=== PATIENT | female | born 1960 | race Caucasian/White ===

== ENCOUNTER 2021-11-11 10:30 | Outpatient (RCR) | payer MEDICARE, BC, SELFPAY ==
[2021-10-24 16:15] LABS: Free T4 Free Thyroxine* 0.93 ng/dL (0.70-1.85)
[2021-10-26 17:00] LABS: Total T3 80 ng/dL (80-200)
--- NOTE | 2021-11-07 12:35 | ONC.NURNOTE ---
Authorization: User: Patrizia Chaidez Rabiaariannapaola Date: 04/20/21 15:44 Type: Eligibility Determination Note... Request received from [facility] for prior authorization of Keytruda [id number]. Patient carries Medicare as primary insurance. Per CMS.gov LCD F66531 no prior authorization is required for Keytruda. Services are based on medical necessity and follows Medicare guidelines.
[2021-11-09 11:20] LABS: Basophils Absolute Auto 0.04 K/uL (0.00-0.30); Basophils Percent Auto 0.5 % (0.0-3.0); Eosinophils Absolute Auto 0.29 K/uL (0.00-0.50); Eosinophils Percent Auto 3.6 % (0.0-7.0); Hematocrit 36.4 % (33.0-51.0); Hemoglobin* 11.9 gm/dL (12.0-16.0); Immature Granulocytes Abs Auto 0.02 K/uL (0.00-0.30); Lymphocytes Absolute Auto 1.91 K/uL (0.90-2.90); Lymphocytes Percent Auto 23.6 % (20-44); Mean Corpuscular HGB Conc 33 gm/dL (32-36); Mean Corpuscular Hemoglobin 31 pg (26-34); Mean Corpuscular Volume 93 fL (80-100); Neutrophils Absolute Auto 5.17 K/uL (1.7-7.0); Neutrophils Percent Auto 64.1 % (42.0-72.0); Platelet Count* 317 K/uL (140-440); RDW Coefficient of Variation % 14.2 % (11.5-15.5); White Blood Count* 8.08 K/uL (4.50-11.00)
[2021-11-09 11:24] LABS: Slide Review Reflex No
[2021-11-09 11:34] LABS: Albumin* 4.4 g/dL (3.3-5.0)
[2021-11-09 11:35] LABS: Chloride* 104 mmol/L (96-114); Potassium* 3.9 mmol/L (3.6-5.1); Sodium* 139 mmol/L (135-149)
[2021-11-09 11:37] LABS: Aspartate Amino Transferase* 27 U/L (12-35); Bilirubin Total* 0.2 mg/dL (0.1-1.5); Carbon Dioxide* 25 mmol/L (20-32); Creatinine* 1.1 mg/dL (0.5-1.5); Est. Creatinine Clearance* 44.99; Estimated Glomerular Filt Rate 58 ml/min; Total Protein* 7.6 g/dL (6.0-8.3)
[2021-11-09 11:38] LABS: Alanine Aminotransferase* 23 U/L (4-35); Alkaline Phosphatase* 61 U/L (40-150); Blood Urea Nitrogen* 31 mg/dL (7-30); Calcium* 9.7 mg/dL (8.4-10.6); Glucose* 107 mg/dL (60-115)
[2021-11-09 12:19] LABS: Free T4 Free Thyroxine* 0.79 ng/dL (0.70-1.85)
[2021-11-10 13:58] LABS: Total T3 74 ng/dL (80-200)
== END 2021-11-13 23:59 | disposition home or self-care (01) ==
LOC: CCIC 10:30
PROVIDERS: PCP Family Medicine; Visit Provider Clinical Nurse Specialist
DX: C43.9 Malignant melanoma of skin, unspecified (principal)
CPT/HCPCS: 36415; 80053; 82533; 84439; 84443; 84480; 85025; 99212; 99215

== ENCOUNTER 2022-04-27 20:51 | Outpatient (CLI) | payer MEDICARE, BC, SELFPAY | END 2022-04-27 20:52 | disposition home or self-care (01) | LOC: SLEEP 05-05 09:09 | PROVIDERS: PCP Family Medicine; Visit Provider Internal Medicine | DX: G47.33 Obstructive sleep apnea (adult) (pediatric) (principal) | CPT/HCPCS: 95811 ==

== ENCOUNTER 2022-05-25 12:30 | Outpatient (RCR) | payer MEDICARE, BC, SELFPAY ==
[2021-12-02 09:53] LABS: Basophils Absolute Auto 0.02 K/uL (0.00-0.30); Basophils Percent Auto 0.2 % (0.0-3.0); Eosinophils Percent Auto 2.3 % (0.0-7.0); Hematocrit 40.1 % (33.0-51.0); Hemoglobin* 12.9 gm/dL (12.0-16.0); Immature Granulocytes Abs Auto 0.02 K/uL (0.00-0.30); Lymphocytes Absolute Auto 2.21 K/uL (0.90-2.90); Lymphocytes Percent Auto 25.7 % (20-44); Mean Corpuscular HGB Conc 32 gm/dL (32-36); Mean Corpuscular Hemoglobin 29 pg (26-34); Mean Corpuscular Volume 91 fL (80-100); Neutrophils Absolute Auto 5.56 K/uL (1.7-7.0); Neutrophils Percent Auto 64.6 % (42.0-72.0); Platelet Count* 355 K/uL (140-440); RDW Coefficient of Variation % 13.5 % (11.5-15.5); Red Blood Count 4.39 m/uL (4.00-5.20); White Blood Count* 8.61 K/uL (4.50-11.00)
[2021-12-02 10:02] LABS: Slide Review Reflex No
[2021-12-02 10:05] LABS: Albumin* 4.6 g/dL (3.3-5.0); Chloride* 104 mmol/L (96-114); Sodium* 142 mmol/L (135-149)
[2021-12-02 10:06] LABS: Potassium* 3.8 mmol/L (3.6-5.1)
[2021-12-02 10:08] LABS: Alanine Aminotransferase* 19 U/L (4-35); Alkaline Phosphatase* 59 U/L (40-150); Aspartate Amino Transferase* 25 U/L (12-35); Bilirubin Total* 0.2 mg/dL (0.1-1.5); Blood Urea Nitrogen* 37 mg/dL (7-30); Carbon Dioxide* 23 mmol/L (20-32); Estimated Glomerular Filt Rate 64 ml/min; Glucose* 107 mg/dL (60-115); Total Protein* 8.2 g/dL (6.0-8.3)
[2021-12-02 10:09] LABS: Calcium* 9.9 mg/dL (8.4-10.6)
[2021-12-02] MEDS: PEMBROLIZUMAB 400 MG, TUBING PRIMARY 1 EACH, In-line 0.2 micron filter set 1 EACH in 0.... 232 MG IVPB (11:43)
[2021-12-03 14:05] LABS: Cortisol, Serum 14.2 ug/dL
[2022-01-17 11:55] LABS: White Blood Count* 8.93 K/uL (4.50-11.00)
[2022-01-17 11:56] LABS: Basophils Percent Auto 0.6 % (0.0-3.0); Eosinophils Percent Auto 2.7 % (0.0-7.0); Hematocrit 39.2 % (33.0-51.0); Hemoglobin* 12.5 gm/dL (12.0-16.0); Immature Granulocytes Pct Auto 0.4 %; Lymphocytes Percent Auto 24.5 % (20-44); Mean Corpuscular HGB Conc 32 gm/dL (32-36); Mean Corpuscular Hemoglobin 29 pg (26-34); Mean Corpuscular Volume 90 fL (80-100); Neutrophils Percent Auto 63.8 % (42.0-72.0); Platelet Count* 304 K/uL (140-440); RDW Coefficient of Variation % 14.5 % (11.5-15.5); Red Blood Count 4.34 m/uL (4.00-5.20)
[2022-01-17 11:57] LABS: Basophils Absolute Auto 0.05 K/uL (0.00-0.30); Eosinophils Absolute Auto 0.24 K/uL (0.00-0.50); Immature Granulocytes Abs Auto 0.04 K/uL (0.00-0.30); Lymphocytes Absolute Auto 2.19 K/uL (0.90-2.90); Monocytes Absolute Auto 0.71 K/UL (0.00-0.90); Slide Review Reflex No
[2022-01-17 12:27] LABS: Blood Urea Nitrogen* 22 mg/dL (7-30); Calcium* 9.6 mg/dL (8.4-10.6); Carbon Dioxide* 19 mmol/L (20-32); Chloride* 108 mmol/L (96-114); Estimated Glomerular Filt Rate 64 ml/min; Glucose* 110 mg/dL (60-115); Potassium* 4.4 mmol/L (3.6-5.1); Sodium* 138 mmol/L (135-149)
[2022-01-17 12:28] LABS: Alanine Aminotransferase* 18 U/L (4-35); Albumin* 4.4 g/dL (3.3-5.0); Alkaline Phosphatase* 59 U/L (40-150); Aspartate Amino Transferase* 46 U/L (12-35); Bilirubin Total* 0.3 mg/dL (0.1-1.5); Total Protein* 7.8 g/dL (6.0-8.3)
[2022-01-17] MEDS: PEMBROLIZUMAB 400 MG, TUBING PRIMARY 1 EACH, In-line 0.2 micron filter set 1 EACH in 0.... 232 MG IVPB (13:02)
[2022-01-17 20:12] LABS: Cortisol, Serum 10.5 ug/dL
[2022-02-27 11:48] LABS: Albumin* 4.4 g/dL (3.3-5.0); Chloride* 104 mmol/L (96-114); Potassium* 3.8 mmol/L (3.6-5.1); Sodium* 138 mmol/L (135-149)
[2022-02-27 11:50] LABS: Basophils Absolute Auto 0.04 K/uL (0.00-0.30); Basophils Percent Auto 0.5 % (0.0-3.0); Eosinophils Absolute Auto 0.17 K/uL (0.00-0.50); Eosinophils Percent Auto 2.2 % (0.0-7.0); Estimated Glomerular Filt Rate 64 ml/min; Hematocrit 39.5 % (33.0-51.0); Hemoglobin* 12.7 gm/dL (12.0-16.0); Immature Granulocytes Abs Auto 0.03 K/uL (0.00-0.30); Immature Granulocytes Pct Auto 0.4 %; Lymphocytes Absolute Auto 1.95 K/uL (0.90-2.90); Lymphocytes Percent Auto 25.3 % (20-44); Mean Corpuscular HGB Conc 32 gm/dL (32-36); Mean Corpuscular Hemoglobin 29 pg (26-34); Mean Corpuscular Volume 90 fL (80-100); Monocytes Percent Auto 7.9 % (0.0-11.0); Neutrophils Absolute Auto 4.92 K/uL (1.7-7.0); Neutrophils Percent Auto 63.7 % (42.0-72.0); Platelet Count* 315 K/uL (140-440); RDW Coefficient of Variation % 15.3 % (11.5-15.5); White Blood Count* 7.72 K/uL (4.50-11.00)
[2022-02-27 11:51] LABS: Alanine Aminotransferase* 20 U/L (4-35); Alkaline Phosphatase* 57 U/L (40-150); Aspartate Amino Transferase* 22 U/L (12-35); Bilirubin Total* 0.4 mg/dL (0.1-1.5); Blood Urea Nitrogen* 20 mg/dL (7-30); Carbon Dioxide* 23 mmol/L (20-32); Glucose* 110 mg/dL (60-115); Total Protein* 7.4 g/dL (6.0-8.3)
[2022-02-27 11:52] LABS: Calcium* 9.2 mg/dL (8.4-10.6)
[2022-02-27 12:00] LABS: Slide Review Reflex No
[2022-02-28 10:34] LABS: Cortisol, Serum 8.8 ug/dL
--- NOTE | 2022-02-28 12:26 | ONC.NURNOTE ---
Keytruda not available in pts dosage. Cindy will return tomorrow.
[2022-03-01 14:00] VITALS: BP 115/78; PULSE 57; RESP 16; TEMP 35.9; O2SAT 96
[2022-03-01] MEDS: PEMBROLIZUMAB 400 MG, TUBING PRIMARY 1 EACH, In-line 0.2 micron filter set 1 EACH in 0.... 232 MG IVPB (14:29)
--- NOTE | 2022-03-03 12:29 | ONC.NURNOTE ---
Dr. jimenez's note faxed to primary MD Dr. Dominguez per her request due to HR in 50's
[2022-04-12 11:44] LABS: Basophils Absolute Auto 0.03 K/uL (0.00-0.30); Basophils Percent Auto 0.4 % (0.0-3.0); Eosinophils Absolute Auto 0.24 K/uL (0.00-0.50); Eosinophils Percent Auto 2.8 % (0.0-7.0); Hematocrit 36.6 % (33.0-51.0); Hemoglobin* 11.8 gm/dL (12.0-16.0); Immature Granulocytes Abs Auto 0.04 K/uL (0.00-0.30); Immature Granulocytes Pct Auto 0.5 %; Lymphocytes Absolute Auto 1.88 K/uL (0.90-2.90); Lymphocytes Percent Auto 22.3 % (20-44); Mean Corpuscular HGB Conc 32 gm/dL (32-36); Mean Corpuscular Hemoglobin 30 pg (26-34); Mean Corpuscular Volume 93 fL (80-100); Monocytes Percent Auto 8.1 % (0.0-11.0); Neutrophils Absolute Auto 5.57 K/uL (1.7-7.0); Neutrophils Percent Auto 65.9 % (42.0-72.0); Platelet Count* 333 K/uL (140-440); RDW Coefficient of Variation % 15.1 % (11.5-15.5); Red Blood Count 3.95 m/uL (4.00-5.20); White Blood Count* 8.44 K/uL (4.50-11.00)
[2022-04-12 11:48] LABS: Slide Review Reflex No
[2022-04-12 11:51] VITALS: BP 118/63; PULSE 49; RESP 16; TEMP 36.5; O2SAT 95
[2022-04-12 11:57] LABS: Albumin* 4.3 g/dL (3.3-5.0); Chloride* 108 mmol/L (96-114)
[2022-04-12 11:58] LABS: Potassium* 4.3 mmol/L (3.6-5.1); Sodium* 139 mmol/L (135-149)
[2022-04-12 12:00] LABS: Aspartate Amino Transferase* 23 U/L (12-35); Bilirubin Total* 0.4 mg/dL (0.1-1.5); Carbon Dioxide* 22 mmol/L (20-32); Estimated Glomerular Filt Rate 64 ml/min
[2022-04-12 12:01] LABS: Alanine Aminotransferase* 24 U/L (4-35); Alkaline Phosphatase* 58 U/L (40-150); Blood Urea Nitrogen* 21 mg/dL (7-30); Calcium* 9.7 mg/dL (8.4-10.6); Glucose* 104 mg/dL (60-115); Total Protein* 7.3 g/dL (6.0-8.3)
[2022-04-12] MEDS: PEMBROLIZUMAB 400 MG, TUBING PRIMARY 1 EACH, In-line 0.2 micron filter set 1 EACH in 0.... 232 MG IVPB (13:09)
--- NOTE | 2022-04-12 14:58 | ONC.NURNOTE ---
Pt here for q6wk Keytruda; tolerating well. Pt is in work-up for bariatric surgery; in April she will have a sleep study/sleep consult, psych consult and historic preservationist consult. Scheduling of bariatric surgery at [facility] is pending results of these appts. Pt sched to f/u with Dr. Agrawal with next Keytruda infusion.
[2022-04-12 16:18] LABS: Free T4 Free Thyroxine* 1.27 ng/dL (0.70-1.85)
[2022-04-14 14:57] LABS: Free T3 2.6 pg/mL (2.5-4.3)
--- NOTE | 2022-05-22 15:11 | URNOTE ---
Request received for authorization forGerson ([id number]). Prior authorization is not required as services are based on medical necessity and follow Medicare guidelines.
[2022-05-25 12:50] LABS: Basophils Absolute Auto 0.04 K/uL (0.00-0.30); Basophils Percent Auto 0.5 % (0.0-3.0); Eosinophils Absolute Auto 0.26 K/uL (0.00-0.50); Eosinophils Percent Auto 3.1 % (0.0-7.0); Hematocrit 39.2 % (33.0-51.0); Hemoglobin* 12.7 gm/dL (12.0-16.0); Immature Granulocytes Abs Auto 0.01 K/uL (0.00-0.30); Immature Granulocytes Pct Auto 0.1 %; Lymphocytes Absolute Auto 1.94 K/uL (0.90-2.90); Lymphocytes Percent Auto 23.4 % (20-44); Mean Corpuscular HGB Conc 32 gm/dL (32-36); Mean Corpuscular Hemoglobin 30 pg (26-34); Mean Corpuscular Volume 92 fL (80-100); Monocytes Percent Auto 6.9 % (0.0-11.0); Neutrophils Absolute Auto 5.46 K/uL (1.7-7.0); Platelet Count* 327 K/uL (140-440); RDW Coefficient of Variation % 13.5 % (11.5-15.5); Red Blood Count 4.26 m/uL (4.00-5.20); White Blood Count* 8.28 K/uL (4.50-11.00)
[2022-05-25 12:55] LABS: Slide Review Reflex No
[2022-05-25 13:09] LABS: Albumin* 4.5 g/dL (3.3-5.0); Chloride* 106 mmol/L (96-114)
[2022-05-25 13:10] LABS: Sodium* 140 mmol/L (135-149)
[2022-05-25 13:12] LABS: Aspartate Amino Transferase* 22 U/L (12-35); Bilirubin Total* 0.5 mg/dL (0.1-1.5); Carbon Dioxide* 23 mmol/L (20-32); Creatinine* 1.1 mg/dL (0.5-1.5); Estimated Glomerular Filt Rate 58 ml/min; Total Protein* 7.8 g/dL (6.0-8.3)
[2022-05-25 13:13] LABS: Alanine Aminotransferase* 21 U/L (4-35); Alkaline Phosphatase* 56 U/L (40-150); Blood Urea Nitrogen* 22 mg/dL (7-30); Calcium* 10.2 mg/dL (8.4-10.6); Glucose* 99 mg/dL (60-115)
[2022-05-25 13:41] VITALS: BP 133/72; PULSE 52; RESP 18; TEMP 35.8; O2SAT 96
[2022-05-25] MEDS: PEMBROLIZUMAB 400 MG, TUBING PRIMARY 1 EACH, In-line 0.2 micron filter set 1 EACH in 0.... 232 MG IVPB (14:13)
[2022-05-27 02:45] LABS: Total T3 84 ng/dL (80-200)
== END 2022-05-31 23:59 | disposition home or self-care (01) ==
LOC: CCIC 12:30
PROVIDERS: Clinical Nurse Specialist; PCP Family Medicine; Referring Provider Family Medicine; Visit Provider Internal Medicine Hematology & Oncology
DX: C43.9 Malignant melanoma of skin, unspecified (principal); E03.9 Hypothyroidism, unspecified
CPT/HCPCS: 36415; 80053; 82533; 84436; 84439; 84443; 84480; 84481; 85025; 96413; 99212; 99214; 99215; J9271

== ENCOUNTER 2022-06-01 14:52 | Outpatient (CLI) | payer MEDICARE, BC, SELFPAY ==
--- NOTE | 2022-06-01 15:30 | CRLHL7_ITS ---
For Patients: As a result of the 21st Century Cures Act, medical imaging exams and procedure reports are released immediately into your electronic medical record. You may view this report before your referring provider. If you have questions, please contact your health care provider. INDICATION: 61 year-old female. Malignant melanoma of the left shoulder. Immunotherapy (Keytruda). Followup. Restaging. TECHNIQUE: 11.84 mCi 18 FDG (18 bjoqiv-qk-eob-glucose) injected intravenously. Imaging performed from the skull vertex through the feet [address] performed for anatomic correlation and attenuation correction. Pre scan glucose: 102 mg/dL. COMPARISON: PET/CT scan November 01, 2020. FINDINGS: Physiologic activity is identified in the brain, salivary glands, tongue, paralaryngeal soft tissues, myocardium, GI, and tract. The intracranial structures are within normal limits. The soft tissues of the head, face, and neck are within normal limits. A previously suggested nodule in the right thyroid gland is less evident but not absent with an SUV max of 3.3 previously 4.6. Within the chest there are no metabolically active nodules or masses. No abnormal activity within either breast. No evidence for metabolically active lymphadenopathy within the chest including the axillary or supraclavicular spaces. There is focal asymmetric increased activity within the subcutaneous fat along the proximal lateral RIGHT shoulder entirely nonspecific. Please correlate with any pertinent clinical history such as a biopsy or trauma to this region. The SUV max is 3.5. The abdomen and pelvis are within normal limits. High-level activity associated with small and large bowel loops can be seen in patients on metformin. No evidence for metabolically active abdominal pelvic or inguinal lymphadenopathy. The soft tissues of the lower extremities from the hips to the feet are within normal limits. The included skeleton demonstrates degenerative-type activity about the shoulders, knees, and right ankle. CT Findings: Minor curvilinear fibrosis or atelectasis anteromedial right middle lobe and lingular left upper lobe. No thoracic lymphadenopathy. Degenerative arthritis of the shoulders and sternoclavicular joints. No hydronephrosis or splenomegaly. Vascular calcification in a normal caliber abdominal aorta. Absent uterus. Degenerative arthritis of the hips, symphysis pubis, and knees. IMPRESSION: 1. No PET/CT scan evidence for recurrent or metastatic disease. 2. Nonspecific activity within subcutaneous fat lateral to the RIGHT shoulder, SUV max 3.5. This could be related to prior trauma or post interventional in nature. There is NO abnormal activity about the LEFT shoulder. 3. Small nodule right thyroid gland less evident than before and less metabolically active, very likely benign. Dictated by Jamie Spivey MD @ 06/07/2022 1:21:57 PM (Electronically Signed)
== END 2022-06-01 14:53 | disposition home or self-care (01) ==
LOC: RAD 14:54
PROVIDERS: PCP Family Medicine; Visit Provider Internal Medicine Hematology & Oncology
DX: C43.62 Malignant melanoma of left upper limb, including shoulder (principal); C43.9 Malignant melanoma of skin, unspecified; E04.1 Nontoxic single thyroid nodule
CPT/HCPCS: 78816; A9552

== ENCOUNTER 2022-10-02 10:00 | Outpatient (RCR) | payer MEDICARE, BC, SELFPAY ==
--- NOTE | 2022-06-08 13:31 | ONC.NURNOTE ---
Left message for patient that bid writer contacted [facility] and they stated she had cancelled appointment for last November and left her a message to reschedule but she has not done that. Primary Care Nurse Practitioner spoke with Jayson and they plan to reach out to patient and get her in for full body screen.
[2022-07-10 10:12] LABS: Basophils Absolute Auto 0.03 K/uL (0.00-0.30); Basophils Percent Auto 0.4 % (0.0-3.0); Eosinophils Absolute Auto 0.24 K/uL (0.00-0.50); Eosinophils Percent Auto 3.1 % (0.0-7.0); Hematocrit 40.2 % (33.0-51.0); Hemoglobin* 12.9 gm/dL (12.0-16.0); Immature Granulocytes Abs Auto 0.03 K/uL (0.00-0.30); Immature Granulocytes Pct Auto 0.4 %; Lymphocytes Absolute Auto 1.94 K/uL (0.90-2.90); Lymphocytes Percent Auto 24.9 % (20-44); Mean Corpuscular HGB Conc 32 gm/dL (32-36); Mean Corpuscular Hemoglobin 29 pg (26-34); Mean Corpuscular Volume 91 fL (80-100); Monocytes Percent Auto 6.9 % (0.0-11.0); Neutrophils Absolute Auto 5.02 K/uL (1.7-7.0); Neutrophils Percent Auto 64.3 % (42.0-72.0); Platelet Count* 322 K/uL (140-440); RDW Coefficient of Variation % 13.5 % (11.5-15.5); Red Blood Count 4.43 m/uL (4.00-5.20)
[2022-07-10 10:13] LABS: Slide Review Reflex No
[2022-07-10 10:36] LABS: Albumin* 4.5 g/dL (3.3-5.0); Chloride* 105 mmol/L (96-114); Sodium* 139 mmol/L (135-149)
[2022-07-10 10:37] LABS: Potassium* 4.3 mmol/L (3.6-5.1)
[2022-07-10 10:39] LABS: Alanine Aminotransferase* 21 U/L (4-35); Alkaline Phosphatase* 54 U/L (40-150); Aspartate Amino Transferase* 23 U/L (12-35); Bilirubin Total* 0.5 mg/dL (0.1-1.5); Blood Urea Nitrogen* 18 mg/dL (7-30); Carbon Dioxide* 25 mmol/L (20-32); Estimated Glomerular Filt Rate 64 ml/min; Glucose* 122 mg/dL (60-115); Total Protein* 7.8 g/dL (6.0-8.3)
[2022-07-10 10:40] LABS: Calcium* 10.1 mg/dL (8.4-10.6)
[2022-07-10] MEDS: PEMBROLIZUMAB 400 MG, TUBING PRIMARY 1 EACH, In-line 0.2 micron filter set 1 EACH in 0.... 232 MG IVPB (12:46)
--- NOTE | 2022-07-11 10:31 | ONC.NURNOTE ---
Labs from 07/10/22 faxed to [facility] to Dr. Dominguez per request of Ms. Louis.
[2022-07-11 21:51] LABS: Cortisol, Serum 13.6 ug/dL
[2022-08-21 10:28] LABS: Basophils Absolute Auto 0.02 K/uL (0.00-0.30); Basophils Percent Auto 0.3 % (0.0-3.0); Eosinophils Absolute Auto 0.23 K/uL (0.00-0.50); Eosinophils Percent Auto 3.6 % (0.0-7.0); Hematocrit 38.7 % (33.0-51.0); Hemoglobin* 12.5 gm/dL (12.0-16.0); Immature Granulocytes Abs Auto 0.01 K/uL (0.00-0.30); Immature Granulocytes Pct Auto 0.2 %; Lymphocytes Absolute Auto 1.68 K/uL (0.90-2.90); Lymphocytes Percent Auto 26.2 % (20-44); Mean Corpuscular HGB Conc 32 gm/dL (32-36); Mean Corpuscular Hemoglobin 29 pg (26-34); Mean Corpuscular Volume 90 fL (80-100); Neutrophils Absolute Auto 4.03 K/uL (1.7-7.0); Neutrophils Percent Auto 62.7 % (42.0-72.0); Platelet Count* 303 K/uL (140-440); RDW Coefficient of Variation % 14.4 % (11.5-15.5); Red Blood Count 4.28 m/uL (4.00-5.20); White Blood Count* 6.42 K/uL (4.50-11.00)
[2022-08-21 10:32] LABS: Slide Review Reflex No
[2022-08-21 10:43] LABS: Albumin* 4.5 g/dL (3.3-5.0); Chloride* 104 mmol/L (96-114); Potassium* 4.1 mmol/L (3.6-5.1); Sodium* 139 mmol/L (135-149)
[2022-08-21 10:46] LABS: Alanine Aminotransferase* 20 U/L (4-35); Alkaline Phosphatase* 58 U/L (40-150); Aspartate Amino Transferase* 21 U/L (12-35); Bilirubin Total* 0.3 mg/dL (0.1-1.5); Blood Urea Nitrogen* 25 mg/dL (7-30); Carbon Dioxide* 24 mmol/L (20-32); Creatinine* 0.9 mg/dL (0.5-1.5); Estimated Glomerular Filt Rate 73 ml/min; Glucose* 118 mg/dL (60-115); Total Protein* 7.7 g/dL (6.0-8.3)
[2022-08-21 10:47] LABS: Calcium* 9.7 mg/dL (8.4-10.6)
[2022-08-21 11:15] VITALS: BP 137/77; PULSE 44; RESP 16; TEMP 35.9; O2SAT 96
[2022-08-21] MEDS: PEMBROLIZUMAB 400 MG, TUBING PRIMARY 1 EACH, In-line 0.2 micron filter set 1 EACH in 0.... 232 MG IVPB (12:29)
[2022-10-02 10:21] LABS: Basophils Absolute Auto 0.03 K/uL (0.00-0.30); Basophils Percent Auto 0.4 % (0.0-3.0); Eosinophils Percent Auto 2.4 % (0.0-7.0); Hematocrit 40.2 % (33.0-51.0); Immature Granulocytes Abs Auto 0.02 K/uL (0.00-0.30); Immature Granulocytes Pct Auto 0.2 %; Lymphocytes Absolute Auto 1.99 K/uL (0.90-2.90); Mean Corpuscular HGB Conc 32 gm/dL (32-36); Mean Corpuscular Hemoglobin 29 pg (26-34); Mean Corpuscular Volume 91 fL (80-100); Monocytes Percent Auto 7.3 % (0.0-11.0); Neutrophils Absolute Auto 5.45 K/uL (1.7-7.0); Neutrophils Percent Auto 65.7 % (42.0-72.0); Platelet Count* 352 K/uL (140-440); RDW Coefficient of Variation % 14.4 % (11.5-15.5); Red Blood Count 4.44 m/uL (4.00-5.20); Slide Review Reflex No
[2022-10-02 10:33] LABS: Albumin* 4.5 g/dL (3.3-5.0); Chloride* 105 mmol/L (96-114); Potassium* 3.6 mmol/L (3.6-5.1); Sodium* 138 mmol/L (135-149)
[2022-10-02 10:35] LABS: Creatinine* 0.9 mg/dL (0.5-1.5); Estimated Glomerular Filt Rate 73 ml/min
[2022-10-02 10:36] LABS: Alanine Aminotransferase* 26 U/L (4-35); Alkaline Phosphatase* 58 U/L (40-150); Aspartate Amino Transferase* 26 U/L (12-35); Bilirubin Total* 0.2 mg/dL (0.1-1.5); Blood Urea Nitrogen* 29 mg/dL (7-30); Carbon Dioxide* 24 mmol/L (20-32); Glucose* 113 mg/dL (60-115)
[2022-10-02 10:37] LABS: Calcium* 10.4 mg/dL (8.4-10.6)
[2022-10-02] MEDS: PEMBROLIZUMAB 400 MG, TUBING PRIMARY 1 EACH, In-line 0.2 micron filter set 1 EACH in 0.... 232 MG IVPB (12:40)
[2022-10-04 04:11] LABS: Cortisol, Serum 12.6 ug/dL
== END 2022-12-05 23:59 | disposition home or self-care (01) ==
LOC: CCIC 10:00
PROVIDERS: Internal Medicine Hematology & Oncology; PCP Family Medicine; Referring Provider Family Medicine; Visit Provider Clinical Nurse Specialist
DX: C43.9 Malignant melanoma of skin, unspecified (principal); E03.9 Hypothyroidism, unspecified; R60.9 Edema, unspecified; R00.1 Bradycardia, unspecified; E11.9 Type 2 diabetes mellitus without complications; I10 Essential (primary) hypertension; E66.01 Morbid (severe) obesity due to excess calories
CPT/HCPCS: 36415; 80053; 82533; 84443; 85025; 96413; 99212; 99213; 99214; 99215; 99442; J9271

== ENCOUNTER 2023-06-05 13:00 | Outpatient (RCR) | payer MEDICARE, BC, SELFPAY ==
[2022-12-28 13:07] LABS: Basophils Absolute Auto 0.03 K/uL (0.00-0.30); Basophils Percent Auto 0.4 % (0.0-3.0); Eosinophils Absolute Auto 0.24 K/uL (0.00-0.50); Eosinophils Percent Auto 3.3 % (0.0-7.0); Hematocrit 41.8 % (33.0-51.0); Hemoglobin* 13.7 gm/dL (12.0-16.0); Immature Granulocytes Abs Auto 0.01 K/uL (0.00-0.30); Immature Granulocytes Pct Auto 0.1 %; Lymphocytes Absolute Auto 2.35 K/uL (0.90-2.90); Lymphocytes Percent Auto 32.3 % (20-44); Mean Corpuscular HGB Conc 33 gm/dL (32-36); Mean Corpuscular Hemoglobin 29 pg (26-34); Mean Corpuscular Volume 89 fL (80-100); Monocytes Percent Auto 7.6 % (0.0-11.0); Neutrophils Absolute Auto 4.09 K/uL (1.7-7.0); Neutrophils Percent Auto 56.3 % (42.0-72.0); Platelet Count* 293 K/uL (140-440); RDW Coefficient of Variation % 15.7 % (11.5-15.5); White Blood Count* 7.27 K/uL (4.50-11.00)
[2022-12-28 13:22] LABS: Albumin* 4.3 g/dL (3.3-5.0); Slide Review Reflex No
[2022-12-28 13:23] LABS: Chloride* 102 mmol/L (96-114); Potassium* 3.1 mmol/L (3.6-5.1); Sodium* 133 mmol/L (135-149)
[2022-12-28 13:25] LABS: Alkaline Phosphatase* 86 U/L (40-150); Anion Gap 11 mEq/L (7-15); Aspartate Amino Transferase* 38 U/L (12-35); Bilirubin Total* 0.7 mg/dL (0.1-1.5); Blood Urea Nitrogen* 21 mg/dL (7-30); Carbon Dioxide* 20 mmol/L (20-32); Creatinine* 0.9 mg/dL (0.5-1.5); Estimated Glomerular Filt Rate 73 ml/min; Total Protein* 7.6 g/dL (6.0-8.3)
[2022-12-28 13:26] LABS: Alanine Aminotransferase* 32 U/L (4-35); Calcium* 10.3 mg/dL (8.4-10.6); Glucose* 104 mg/dL (60-115); Lactate Dehydrogenase* 227 U/L (120-246)
--- NOTE | 2023-03-27 14:12 | ONC.NURNOTE ---
Lab orders sent to [facility] per pt request.
--- NOTE | 2023-04-26 15:19 | ONC.NURNOTE ---
Pt scheduled for next PET CT at [facility] on May 17 at 3:30pm. Message left for pt to confirm that day works for her and to let her know we will also need a blood draw that day as well.
[2023-05-17 15:04] LABS: Basophils Absolute Auto 0.03 K/uL (0.00-0.30); Basophils Percent Auto 0.4 % (0.0-3.0); Eosinophils Absolute Auto 0.21 K/uL (0.00-0.50); Eosinophils Percent Auto 2.9 % (0.0-7.0); Hematocrit 36.2 % (33.0-51.0); Hemoglobin* 11.4 gm/dL (12.0-16.0); Immature Granulocytes Abs Auto 0.05 K/uL (0.00-0.30); Immature Granulocytes Pct Auto 0.7 %; Lymphocytes Absolute Auto 2.59 K/uL (0.90-2.90); Lymphocytes Percent Auto 35.7 % (20-44); Mean Corpuscular HGB Conc 32 gm/dL (32-36); Mean Corpuscular Hemoglobin 32 pg (26-34); Mean Corpuscular Volume 101 fL (80-100); Monocytes Percent Auto 5.9 % (0.0-11.0); Neutrophils Absolute Auto 3.95 K/uL (1.7-7.0); Neutrophils Percent Auto 54.4 % (42.0-72.0); Platelet Count* 248 K/uL (140-440); RDW Coefficient of Variation % 13.9 % (11.5-15.5); Red Blood Count 3.59 m/uL (4.00-5.20); White Blood Count* 7.26 K/uL (4.50-11.00)
[2023-05-17 15:11] LABS: Slide Review Reflex No
[2023-05-17 15:16] LABS: Albumin* 4.8 g/dL (3.3-5.0); Chloride* 109 mmol/L (96-114); Potassium* 3.9 mmol/L (3.6-5.1); Sodium* 140 mmol/L (135-149)
[2023-05-17 15:18] LABS: Creatinine* 0.8 mg/dL (0.5-1.5); Estimated Glomerular Filt Rate 84 ml/min
[2023-05-17 15:19] LABS: Alanine Aminotransferase* 31 U/L (4-35); Alkaline Phosphatase* 89 U/L (40-150); Anion Gap 11 mEq/L (7-15); Aspartate Amino Transferase* 48 U/L (12-35); Bilirubin Total* 0.9 mg/dL (0.1-1.5); Blood Urea Nitrogen* 25 mg/dL (7-30); Calcium* 9.7 mg/dL (8.4-10.6); Carbon Dioxide* 20 mmol/L (20-32); Glucose* 86 mg/dL (60-115); Lactate Dehydrogenase* 299 U/L (120-246); Total Protein* 7.9 g/dL (6.0-8.3)
== END 2023-06-26 23:59 | disposition home or self-care (01) ==
LOC: CCIC 13:00
PROVIDERS: PCP Family Medicine; Referring Provider Family Medicine; Visit Provider Internal Medicine Hematology & Oncology
DX: C43.62 Malignant melanoma of left upper limb, including shoulder (principal); E03.9 Hypothyroidism, unspecified; Z87.891 Personal history of nicotine dependence
CPT/HCPCS: 36415; 78816; 80053; 83615; 84443; 85025; 99213; 99214; G0463; A9552

== ENCOUNTER 2024-02-04 14:00 | Outpatient (RCR) | payer MEDICARE, BC, SELFPAY ==
[2023-11-29 15:51] LABS: Albumin* 4.5 g/dL (3.3-5.0)
[2023-11-29 15:52] LABS: Chloride* 103 mmol/L (96-114); Potassium* 3.2 mmol/L (3.6-5.1); Sodium* 134 mmol/L (135-149)
[2023-11-29 15:54] LABS: Anion Gap 7 mEq/L (7-15); Aspartate Amino Transferase* 32 U/L (12-35); Bilirubin Total* 0.7 mg/dL (0.1-1.5); Carbon Dioxide* 24 mmol/L (20-32); Creatinine* 0.7 mg/dL (0.5-1.5); Estimated Glomerular Filt Rate 98 ml/min; Total Protein* 7.4 g/dL (6.0-8.3)
[2023-11-29 15:55] LABS: Alanine Aminotransferase* 29 U/L (4-35); Alkaline Phosphatase* 89 U/L (40-150); Basophils Absolute Auto 0.02 K/uL (0.00-0.30); Basophils Percent Auto 0.3 % (0.0-3.0); Blood Urea Nitrogen* 29 mg/dL (7-30); Calcium* 9.8 mg/dL (8.4-10.6); Eosinophils Absolute Auto 0.16 K/uL (0.00-0.50); Eosinophils Percent Auto 2.1 % (0.0-7.0); Glucose* 87 mg/dL (60-115); Hematocrit 36.6 % (33.0-51.0); Hemoglobin* 11.6 gm/dL (12.0-16.0); Immature Granulocytes Abs Auto 0.02 K/uL (0.00-0.30); Immature Granulocytes Pct Auto 0.3 %; Lactate Dehydrogenase* 259 U/L (120-246); Lymphocytes Absolute Auto 2.39 K/uL (0.90-2.90); Lymphocytes Percent Auto 30.8 % (20-44); Mean Corpuscular HGB Conc 32 gm/dL (32-36); Mean Corpuscular Hemoglobin 30 pg (26-34); Mean Corpuscular Volume 94 fL (80-100); Monocytes Percent Auto 6.4 % (0.0-11.0); Neutrophils Absolute Auto 4.68 K/uL (1.7-7.0); Neutrophils Percent Auto 60.1 % (42.0-72.0); Platelet Count* 197 K/uL (140-440); RDW Coefficient of Variation % 14.6 % (11.5-15.5); Red Blood Count 3.88 m/uL (4.00-5.20); White Blood Count* 7.77 K/uL (4.50-11.00)
[2023-11-29 16:01] LABS: Slide Review Reflex No
[2023-12-11 15:05] LABS: Iron* 60 ug/dL (37-170)
[2023-12-11 15:14] LABS: Percent Iron Saturation 18 % (20-50); Total Iron Binding Capacity 332 ug/dL (265-497)
[2023-12-11 15:41] LABS: Ferritin* 28.5 ng/mL (11.1-264.0)
[2023-12-11 15:55] LABS: Vitamin B12* 967 pg/mL (243-894)
[2023-12-12 18:21] LABS: Copper, Serum/Plasma 77.3 ug/dL (80.0-155.0)
[2023-12-13 15:23] LABS: Folate, Serum >22.3 ng/mL (>=5.9)
--- NOTE | 2023-12-20 10:28 | ONC.NURNOTE ---
Addendum entered by Gabriela Yo RN 12/20/23 16:10: Patient called back verifying she received message from Dr. Adrian this am and will start copper supplement when she gets back from out of town on 12/30 Original Note: New RX- Copper Gluconate 2 mg sent to [facility] per Dr Adrian [facility] and other local retail pharmacies do not carry copper it was suggested to look at vitamin stores or [facility] available on [facility] for 11.99 this information was called to Cindy instructions given to only take 2mg QOD for 14 doses (1 month) teach back used
== END 2024-05-27 23:59 | disposition home or self-care (01) ==
LOC: CCIC 14:00
PROVIDERS: PCP Family Medicine; Referring Provider Family Medicine; Visit Provider Internal Medicine Hematology & Oncology
DX: C43.62 Malignant melanoma of left upper limb, including shoulder (principal); E03.9 Hypothyroidism, unspecified; Z98.84 Bariatric surgery status; D75.89 Other specified diseases of blood and blood-forming organs
CPT/HCPCS: 36415; 78816; 80053; 82525; 82607; 82728; 82746; 83540; 83550; 83615; 84443; 85025; 99214; G0463; A9552

== ENCOUNTER 2024-07-10 13:26 | Outpatient (CLI) | payer MEDICARE, BC, SELFPAY ==
--- NOTE | 2024-07-10 14:30 | CRLHL7_ITS ---
For Patients: As a result of the 21st Century Cures Act, medical imaging exams and procedure reports are released immediately into your electronic medical record. You may view this report before your referring provider. If you have questions, please contact your health care provider. EXAM: PET-CT Vertex to feet CLINICAL INFORMATION: 63-yo Female with a history of excised malignant melanoma of the left posterior shoulder/upper arm with prior wide local excision and sentinel lymph node dissection (2020). Completed signal agent immunotherapy (10/02/2022). Prior right thyroid lobe nodule biopsy benign per clinic notes (10/2020). Patient is referred for further characterization/surveillance. TECHNIQUE: Radiopharmaceutical: 12.7 mCi of 18F-FDG Intravenous injection site: Rac Uptake time: 55 minutes Blood glucose level at the time of injection: (n/a) mg/dL Field of view: Skull vertex to feet CT protocol: The low-dose, free-breathing, noncontrast CT performed as part of this study is designed for the purposes of attenuation correction and lesion localization, and it is neither sufficient, nor it should be substituted for diagnostic purposes. COMPARISON: PET-CT 11/29/2023, 05/17/2023 and 12/28/2022 FINDINGS: Physiologic background liver standardized uptake value (SUV mean and SUV max) reported for comparison between PET studies: 2.5 and 3.2. Visualized head and neck: No abnormal uptake or significant mass effect in the brain. No enlarged or hypermetabolic cervical chain lymph nodes. Carotid vascular calcifications. -low-density right thyroid lobe nodule with very mild uptake, 1.2 cm, SUV max 2.5. Previously 2.5. Not significantly changed Lungs: Respiratory motion. No abnormal pulmonary uptake. Strand-like areas of atelectasis or scarring in the medial right middle lobe, inferior lingula and dependent lung bases. Thoracic lymph nodes: No enlarged or hypermetabolic mediastinal, hilar or axillary lymph nodes. Other chest findings: Small pericardial fluid slightly increased from prior. Trace pleural fluid. Scattered mild coronary vascular calcifications. Hepatobiliary: No measurable tracer avid liver lesions. Distended gallbladder with small layering debris. Spleen: No abnormal uptake. No splenomegaly. Pancreas: No abnormal uptake. No adjacent inflammatory change. Adrenal glands: No abnormal uptake. Kidneys and bladder: No abnormal uptake or obstruction. Similar low-density lower pole right renal lesion without uptake. Too small to characterize, possibly a small cyst. Partially distended bladder. Bowel and peritoneum: Prior gastric bypass surgery. No obstruction. No abnormal uptake in the gastric remnant or small bowel. Patent small bowel anastomoses. Scattered areas of uptake within the colon including the ascending colon/cecum, hepatic and splenic flexure, descending and sigmoid colon demonstrate no gross abnormality on noncontrast CT. Nonspecific, possibly reactive/inflammatory related to Metformin use. Redundant sigmoid colon. Pelvic organs: Prior hysterectomy with bilateral salpingo-oophorectomy. No abnormal uptake. Abdominopelvic lymph nodes: No enlarged or hypermetabolic abdominal, mesenteric, retroperitoneal or pelvic/inguinal lymph nodes. Musculoskeletal, soft tissues, skin: No aggressive, lytic or expansile osseous lesions with uptake. Degenerative type uptake within the shoulders, spine, left elbow, right hand, bilateral hips, bilateral knees and right ankle. -mild soft tissue stranding left posterior shoulder with no asymmetric or nodular uptake, SUV max 1.3 (fused image 102). Nonspecific, possible postprocedural related to the site of prior melanoma excision. -mild curvilinear area skin thickening with uptake lateral aspect distal right lower extremity with no nodular or asymmetric uptake, SUV max 2.1 (fused image 505). Correlate with exam. Possibly inflammatory. Other: Mild soft tissue stranding/edema in the bilateral distal lower extremity. Scattered aortoiliac vascular calcifications. IMPRESSION: 1. Stable study demonstrating no new sites of suspicious tracer avid disease in the head/neck, chest, abdomen/pelvis or extremities suspicious for residual, recurrent or metastatic melanoma. Mild soft tissue stranding left posterior shoulder may represent the site of prior primary melanoma excision. 2. Scattered areas of uptake throughout the length of the colon including ascending colon/cecum, hepatic and splenic flexure, descending and sigmoid colon with no gross abnormality on noncontrast CT. Possibly reactive/inflammatory or related to Metformin use. The degree of uptake could obscure small avid bowel lesions. Consider updated cross-sectional imaging of the abdomen/pelvis with contrast and compare with prior colonoscopy findings. Attention on imaging follow-up. 3. Mild soft tissue stranding/edema in the bilateral distal lower extremities. Curvilinear skin thickening with mild uptake lateral aspect distal right lower extremity with no tracer avid mass or asymmetric nodular uptake. Nonspecific, possibly inflammatory. Attention on directed physical exam. 4. No abnormal uptake in the lungs, solid organs of the upper abdomen or osseous structures. 5. Other nonacute findings as detailed in the body of the report. Dictated by Bayron Barba MD @ 07/10/2024 10:08:00 PM (Electronically Signed)
== END 2024-07-10 13:27 | disposition home or self-care (01) ==
LOC: RAD 13:27
PROVIDERS: PCP Family Medicine; Visit Provider Internal Medicine Hematology & Oncology
DX: C43.8 Malignant melanoma of overlapping sites of skin (principal)
CPT/HCPCS: 78816; A9552

== ENCOUNTER 2024-07-16 12:49 | Outpatient (CLI) | payer MEDICARE, BC, SELFPAY | END 2024-07-16 12:50 | disposition home or self-care (01) | LOC: LAB 12:49 | PROVIDERS: PCP Family Medicine; Visit Provider Family Medicine | DX: E87.6 Hypokalemia (principal) | CPT/HCPCS: 36415; 84132 ==

== ENCOUNTER 2024-07-16 13:00 | Outpatient (RCR) | payer MEDICARE, BC, SELFPAY ==
[2024-07-10 14:16] LABS: Hematocrit 37.7 % (33.0-51.0); Hemoglobin* 12.4 gm/dL (12.0-16.0); Immature Granulocytes Abs Auto 0.01 K/uL (0.00-0.30); Immature Granulocytes Pct Auto 0.1 %; Lymphocytes Absolute Auto 2.21 K/uL (0.90-2.90); Mean Corpuscular HGB Conc 33 gm/dL (32-36); Mean Corpuscular Hemoglobin 31 pg (26-34); Mean Corpuscular Volume 95 fL (80-100); RDW Coefficient of Variation % 13.7 % (11.5-15.5); Red Blood Count 3.96 m/uL (4.00-5.20); White Blood Count* 7.20 K/uL (4.50-11.00)
[2024-07-10 14:23] LABS: Slide Review Reflex No
[2024-07-10 14:25] LABS: Albumin* 4.4 g/dL (3.3-5.0); Chloride* 105 mmol/L (96-114); Potassium* 3.2 mmol/L (3.6-5.1); Sodium* 138 mmol/L (135-149)
[2024-07-10 14:27] LABS: Blood Urea Nitrogen* 24 mg/dL (7-30); Creatinine* 0.9 mg/dL (0.5-1.5); Estimated Glomerular Filt Rate 72 ml/min
[2024-07-10 14:28] LABS: Alanine Aminotransferase* 30 U/L (4-35); Alkaline Phosphatase* 93 U/L (40-150); Anion Gap 9 mEq/L (7-15); Aspartate Amino Transferase* 38 U/L (12-35); Bilirubin Total* 0.6 mg/dL (0.1-1.5); Calcium* 9.7 mg/dL (8.4-10.6); Carbon Dioxide* 24 mmol/L (20-32); Glucose* 74 mg/dL (60-115); Total Protein* 7.1 g/dL (6.0-8.3)
--- NOTE | 2024-07-10 16:38 | ONC.NURNOTE ---
lab results noted with hypokalemia Cindy was called with instructions to increase potassium rich foods such as leafy greens, bananas, potatoes, yams also instructed to contact Dr Alberto White reports last K with Dr Dominguez was reported to her as normal
== END 2025-01-06 23:59 | disposition home or self-care (01) ==
LOC: CCIC 13:00
PROVIDERS: PCP Family Medicine; Referring Provider Family Medicine; Visit Provider Internal Medicine Hematology & Oncology
DX: C43.62 Malignant melanoma of left upper limb, including shoulder (principal); D64.9 Anemia, unspecified; E03.9 Hypothyroidism, unspecified; E04.1 Nontoxic single thyroid nodule; E11.9 Type 2 diabetes mellitus without complications; I10 Essential (primary) hypertension; R00.1 Bradycardia, unspecified; Z98.84 Bariatric surgery status; Z87.891 Personal history of nicotine dependence
CPT/HCPCS: 36415; 80053; 83615; 85025; 99214; G0463

== ENCOUNTER 2025-01-22 14:09 | Outpatient (CLI) | payer MEDICARE, BC, SELFPAY ==
--- NOTE | 2025-01-22 15:00 | CRLHL7_ITS ---
For Patients: As a result of the 21st Century Cures Act, medical imaging exams and procedure reports are released immediately into your electronic medical record. You may view this report before your referring provider. If you have questions, please contact your health care provider. EXAM: FDG PET-CT Whole Body CLINICAL INFORMATION: 64-year-old woman with history of melanoma. Restaging TECHNIQUE: Radiopharmaceutical: 18F-fluorodeoxyglucose (18F-FDG) Dose: 15.5 milliCurie. Blood glucose: 77 mg/dL. Image acquisition: At approximately 60 minutes following IV tracer administration via a left antecubital vein, positron emission tomography was performed from the vertex of the skull to the feet. Non-contrast low-dose helical CT imaging was performed over the same range without breath-hold for attenuation correction of PET images and anatomic correlation; it is neither sufficient, nor should it be substituted for diagnostic purposes. COMPARISON: FDG PET-CT 07/10/2024. Brain MRI 11/01/2020 FINDINGS: Mediastinal blood pool FDG uptake: SUVMax 2.0 (301:119, 202:117) Liver background parenchymal FDG uptake: SUVMax 2.4 (301:164, 202:162) PET Findings: Intracranial brain lesions are inadequately characterized and staged by FDG PET-CT. If there is clinical concern for intracranial metastatic disease, correlate with MRI brain with and without gadolinium contrast for assessment and characterization of intracranial lesions. Within these limitations, no gross abnormal focal increased FDG uptake intracranially. *Similar faint cutaneous FDG uptake in the posterior left shoulder, at the probable site of prior surgical excision SUVMax 1.1 (301:94, 202:92), previously SUVmax 1.3. No evidence of focal increased FDG uptake in the resection bed. *Moderate cutaneous FDG uptake along the gluteal cleft without CT correlate is likely reactive/inflammatory. *Decreased conspicuity of faintly FDG avid cutaneous thickening and subcutaneous stranding in the bilateral lower legs, likely reactive/inflammatory. No abnormal FDG avid lymphadenopathy. No abnormal FDG uptake in the visualized skeleton. Diffuse colonic bowel loop uptake is either medication related or physiologic. Tracer uptake elsewhere is physiologic. Non-PET findings: Left-sided cardiac pacemaker. Scattered aortic calcifications. Similar trace pericardial effusion. Postoperative changes from gastric bypass. Hysterectomy. Multilevel degenerative changes in the spine. Degenerative changes in the shoulders and knees. IMPRESSION: 1. No evidence of FDG avid malignancy. 2. Moderate cutaneous FDG uptake along the gluteal cleft without CT correlate is likely reactive/inflammatory. Correlate with direct visual inspection. 3. Decreased conspicuity of faintly FDG avid cutaneous thickening and subcutaneous stranding in the bilateral lower legs, likely reactive/inflammatory. Correlate with direct visual inspection. 4. Diffuse colonic bowel loop uptake is either medication related or physiologic. Correlate with clinical medication history for any metformin use. Dictated by Aamir Ha MD @ 01/23/2025 11:31:59 AM (Electronically Signed)
== END 2025-01-22 14:10 | disposition home or self-care (01) ==
LOC: RAD 14:10
PROVIDERS: PCP Family Medicine; Visit Provider Internal Medicine Hematology & Oncology
DX: C43.8 Malignant melanoma of overlapping sites of skin (principal)
CPT/HCPCS: 78816; A9552